=== PATIENT | male | born 2000 | race Caucasian/White ===

== ENCOUNTER 2025-03-19 16:52 | Inpatient (IN) | payer OTHER ==
[~2025-03-19] VITALS: Ht 175.3 cm; Wt 57.5 kg
[2025-03-19 17:39] LABS: PLATELET COUNT, AUTOMATED 205 10^3/uL (150-450)
[2025-03-19] MEDS ORDERED: HYDR25OIN TOP (17:46)
[2025-03-19 18:17] LABS: ETHYL ALCOHOL (ETHANOL) 0.003 % (0.000-0.010)
[2025-03-19 18:18] LABS: ALT/SGPT 11 U/L (7.0-40); AST/SGOT 14 U/L (<34); CALCIUM LEVEL 9.2 MG/DL (8.5-10.1); CARBON DIOXIDE LEVEL 28 MMOL/L (20-31); CHLORIDE LEVEL 106 MMOL/L (98-107); CREATININE FOR GFR 0.78 MG/DL (0.70-1.30); GLOMERULAR FILTRATION RATE > 90.0 (>60); POTASSIUM SERUM 3.8 MMOL/L (3.5-5.1); SALICYLATE LEVEL < 3.0 MG/DL (<30); SODIUM LEVEL 144 MMOL/L (136-145)
[2025-03-19 19:11] LABS: AMPHETAMINES LEVEL URINE NEGATIVE (NEGATIVE); BARBITURATES URINE NEGATIVE (NEGATIVE); BENZODIAZEPINES URINE NEGATIVE (NEGATIVE); COCAINE METABOLITE URINE NEGATIVE (NEGATIVE); METHADONE URINE NEGATIVE (NEGATIVE); OPIATES URINE NEGATIVE (NEGATIVE); PHENCYCLIDINE URINE NEGATIVE (NEGATIVE)
[2025-03-19 19:29] LABS: CANNABINOIDS URINE POSITIVE (NEGATIVE)
[2025-03-19] MEDS ORDERED: ACETAMINOPHEN 325 MG TAB PO PRN (20:00)
[2025-03-19] MEDS ORDERED: MOM 30 ML SUSPENSION UDC PO PRN (20:00)
[2025-03-19 21:01] VITALS: BP 109/74; TEMP 98.3; O2SAT 97
[2025-03-19] MEDS ORDERED: HOME MED LIST COMPLETE! XX SCH (23:10)
[2025-03-20 06:22] VITALS: BP 112/75; TEMP 97.7; O2SAT 99
[2025-03-20] MEDS: ONDANSETRON 4MG TAB PO PRN (09:40)
[2025-03-20] MEDS: NICOTINE 14 MG/24 HR TRANSDERMAL TD SCH (11:42)
[2025-03-20 14:40] VITALS: BP 120/78; TEMP 98.1; O2SAT 99
[2025-03-20] MEDS: VENLAFAXINE **XR** 37.5 MG CAPSULE PO SCH (16:47)
[2025-03-20] MEDS: MAALOX 30 ML SUSP *UDC PO PRN (19:11)
[2025-03-21 06:43] VITALS: BP 122/83; TEMP 98; O2SAT 98
[2025-03-21 15:26] VITALS: BP 120/75; TEMP 98.7; O2SAT 96
[2025-03-21] MEDS: traZODone 50 MG TAB PO PRN (20:08)
[2025-03-22 06:39] VITALS: BP 120/73; TEMP 98.6; O2SAT 97
[2025-03-22] MEDS: VENLAFAXINE **XR** 75MG CAPSULE PO SCH (08:00)
[2025-03-22 15:06] VITALS: BP 130/82; TEMP 97.9; O2SAT 97
[2025-03-22] MEDS: IBUPROFEN 400 MG TAB PO PRN (17:17)
[2025-03-23 06:00] VITALS: BP 122/73; TEMP 98.2; O2SAT 97
[2025-03-23 15:21] VITALS: BP 114/78; TEMP 97.9; O2SAT 99
[2025-03-23 20:54] VITALS: BP 114/78; TEMP 97.9; O2SAT 99
[2025-03-23] MEDS: traZODone 100 MG TAB PO SCH (21:41)
[2025-03-24 06:31] VITALS: BP 115/73; TEMP 98.2; O2SAT 98
[2025-03-24 15:54] VITALS: BP 121/77; TEMP 97.9; O2SAT 99
[2025-03-24 20:36] VITALS: BP 121/77; TEMP 97.9; O2SAT 99
[2025-03-25] MEDS ORDERED: VENL75CA47 PO (00:41)
[2025-03-25] MEDS ORDERED: ABIL1TAB11 PO (00:41)
[2025-03-25] MEDS ORDERED: HYDR-3363 PO (00:41)
[2025-03-25] MEDS ORDERED: TRAZ-257 PO (00:41)
[2025-03-25 06:38] VITALS: BP 113/88; TEMP 97.3; O2SAT 97
== END 2025-03-25 14:40 | disposition home or self-care (01) | DRG 885 ==
LOC: M ED 16:52 → M ED INP 19:56 → M PSY 20:35
PROVIDERS: ADMIT Student in an Organized Health Care Education/Training Program; ATTEND Student in an Organized Health Care Education/Training Program
DX: F33.3 Major depressive disorder, recurrent, severe with psychotic symptoms (principal); R45.851 Suicidal ideations; Z68.1 Body mass index [BMI] 19.9 or less, adult; F41.9 Anxiety disorder, unspecified; F10.10 Alcohol abuse, uncomplicated; Z91.51 Personal history of suicidal behavior; F17.290 Nicotine dependence, other tobacco product, uncomplicated; R11.2 Nausea with vomiting, unspecified; Z88.5 Allergy status to narcotic agent; Z88.6 Allergy status to analgesic agent; Z91.048 Other nonmedicinal substance allergy status; Z62.811 Personal history of psychological abuse in childhood; Z62.810 Personal history of physical and sexual abuse in childhood; Z56.0 Unemployment, unspecified